=== PATIENT | male | born 2005 | race Caucasian/White ===

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

== ENCOUNTER 2023-03-18 05:37 | Emergency (ER) | payer SELFPAY ==
[~2023-03-18] VITALS: Wt 97.5 kg
[~2023-03-18 05:37] MED LIST changes: +IBU800 M2 PO
== END 2023-03-18 06:32 | disposition home or self-care (01) ==
LOC: ED 05:37
DX: S60.221A Contusion of right hand, initial encounter (principal); W18.39XA Other fall on same level, initial encounter; Y93.89 Activity, other specified; Y92.89 Other specified places as the place of occurrence of the external cause; Y99.8 Other external cause status